=== PATIENT | male | born 1975 | race Caucasian/White ===

== ENCOUNTER 2017-11-06 16:39 | Emergency (ER) | payer SELFPAY ==
[2017-11-06 16:44] VITALS: BP 123/74; PULSE 91; RESP 16; TEMP 36.4; O2SAT 96
--- NOTE | 2017-11-06 16:52 | ED.GENADUL ---
Disposition Clinical Impression: Shingles Disposition: HOME Condition: Good Instructions: Shingles (ED) Additional Instructions: May use ibuprofen, 800 mg, with food every 8 hours. For pain as well as Tylenol 650 mg every 6 hours. Take medication as prescribed. Return for fever, chills, worsening or any other concerns. Our care management team will help you obtain primary care in this area . Prescriptions: ValACYclovir [Valtrex] 1,000 mg PO TID 7 Days #21 tab Medical Decision Making - Medical Decision Making 41-year-old male with right thoracic vesicular rash and pain consistent with acute shingles. We will treat with a course of antiviral. He is outside the window for useful use of prednisone. He understands home management, follow-up, return precautions. Will ask transition of care specialist to help him establish primary care in this area History of Present Illness - General Chief complaint: RashLesion Stated complaint: RASH Time Seen by Provider: 11/06/17 16:42 Source: patient, RN notes reviewed Mode of arrival: ambulatory Limitations: no limitations - History of Present Illness Initial comments: 41yom presents w one week R chest pain, dull,aching, constant, associated with strip like rash of R chest. Improved with Ibuprofen. No fever, cough, SOB. - Related Data Ibuprofen [Advil] 400 mg PO Q6H PRN 11/06/17 ValACYclovir [Valtrex] 1,000 mg PO TID 7 Days #21 tab 11/06/17 Allergies Allergy/AdvReac Type Severity Reaction Status Date / Time No Known Allergies Allergy Unverified 11/06/17 16:45 Review of Systems Other: 41-year-old male: Presents with 7-10 days of dull, achy, constant right-sided chest pain that radiates to the front. Associated with a strip-like rash. No fever, cough, chills, shortness of breath. No fall or injury. Improved with Tylenol. No worsening factors. Past Medical History - Past Medical History Denies General Exam - General Limitations: no limitations General appearance: alert, in no apparent distress - Head Head exam: Present: atraumatic, normocephalic - Eye Eye exam: Present: PERRL, EOMI - Neck Neck exam: Present: normal inspection, full ROM - Respiratory Respiratory exam: Present: normal lung sounds bilaterally, other (Right approximately T4-5 dermatome with vesicular erythematous rash.). Absent: respiratory distress - Cardiovascular Cardiovascular Exam: Present: regular rate, normal rhythm - GI/Abdominal GI/Abdominal exam: Present: soft. Absent: distended - Neurological Exam Neurological exam: Present: alert, oriented X3 - Psychiatric Psychiatric exam: Present: normal affect, normal mood - Skin Skin exam: Present: warm, dry, intact Course Vital Signs - 24 hr 11/06/17 16:44 Temperature 36.4 C L Pulse 91 H Respiratory 16 Rate Blood Pressure 123/74 Pulse Oximetry 96
--- NOTE | 2017-11-07 08:59 | CMPROGNOTE_ITS ---
Care Management Progress Note 11/07-Dr. Cancino requested assistance with a PCP f/u in 1-2 weeks for yuni. Elan does not have a PCP, Avril WHIPPLE ([facility]) water pollution scientist. Referral faxed to [facility] this am.
--- NOTE | 2017-11-07 08:59 | PDOC.ERCMPRO ---
Care Management Progress Note 11/07-Dr. Cancino requested assistance with a PCP f/u in 1-2 weeks for yuni. Elan does not have a PCP, Avril WHIPPLE ([facility]) senior applications architect. Referral faxed to [facility] this am.
== END 2017-11-06 17:18 | disposition home or self-care (01) ==
LOC: ER 08-14 13:21
PROVIDERS: Emergency Provider Emergency Medicine; PCP Nurse Practitioner
DX: B02.9 Zoster without complications (principal)
CPT/HCPCS: 99283

== ENCOUNTER 2018-09-14 08:35 | Outpatient (REF) | payer SELFPAY ==
[2018-09-14 13:39] LABS: HCT 42.8 % (40.0-50.0); HGB 14.9 g/dL (13.5-17.5); Mean Corp. HGB Concentration 34.8 g/dL (32.0-36.0); Mean Corpuscular Hemoglobin 34.1 pg (27.0-33.0); Mean Corpuscular Volume 97.9 fL (80-95); Mean Platelet Volume 10.8 fL (8.0-11.0); Platelet Count 354 x1000/uL (130-400); RBC 4.37 m/cumm (4.50-6.00); RBC Distribution Width 13.3 % (11.8-14.1); White Blood Cell Count 10.41 k/cumm (4.4-10.8)
[2018-09-14 13:51] LABS: ALT 38 U/L (12-78); AST 21 U/L (15-37); Albumin 4.2 g/dL (3.4-5.0); Alkaline Phosphatase 85 U/L (46-116); Anion Gap 12.1 mmol/L (3-11); BUN 13 mg/dL (7-18); Bilirubin, Total 0.4 mg/dL (0.2-1.0); CO2 24.9 mmol/L (21.0-32.0); CREATININE 0.97 mg/dL (0.70-1.30); Calculated LDL 116; Chloride 103 mmol/L (98-107); Cholesterol 163 mg/dL (50-200); Glucose 89 mg/dL (70-100); HDL Cholesterol 36 mg/dL (40-60); Potassium 4.4 mmol/L (3.5-5.1); Sodium 140 mmol/L (136-145); Total Protein 7.5 g/dL (6.4-8.2); Triglyceride 56 mg/dL (30-150)
== END 2018-09-14 08:55 ==
LOC: NCHCN 08:35
PROVIDERS: PCP Nurse Practitioner; Visit Provider Nurse Practitioner Family
DX: Z00.00 Encounter for general adult medical examination without abnormal findings (principal); Z13.228 Encounter for screening for other metabolic disorders; Z13.0 Encounter for screening for diseases of the blood and blood-forming organs and certain disorders involving the immune mechanism; Z13.220 Encounter for screening for lipoid disorders
CPT/HCPCS: 80053; 80061; 83721; 85027

== ENCOUNTER 2019-04-12 11:19 | Outpatient (CLI) | payer SELFPAY ==
--- NOTE | 2019-04-12 11:28 | DI.RAD_ITS ---
EXAM: XR CHEST 2V PA LATERAL INDICATION: CHEST PAIN, R07.9. COMPARISON: No exams were available for comparison TECHNIQUE: 2D digital imaging was performed. FINDINGS: The cardiac and mediastinal contours have a normal appearance. The lungs are well inflated and clear . No infiltrate, effusion or pneumothorax is seen. IMPRESSION: Negative chest x-ray.
[2019-04-12 18:55] LABS: HCT 40.9 % (40.0-50.0); HGB 14.3 g/dL (13.5-17.5); Mean Corpuscular Volume 97.1 fL (80-95); Mean Platelet Volume 10.5 fL (8.0-11.0); Platelet Count 393 x1000/uL (130-400); RBC 4.21 m/cumm (4.50-6.00); RBC Distribution Width 13.2 % (11.8-14.1); White Blood Cell Count 7.64 k/cumm (4.4-10.8)
[2019-04-12 19:04] LABS: Anion Gap 13.1 mmol/L (3-11); BUN 15 mg/dL (7-18); CO2 24.9 mmol/L (21.0-32.0); CREATININE 0.82 mg/dL (0.70-1.30); Chloride 103 mmol/L (98-107); Glucose 94 mg/dL (74-106); Potassium 4.2 mmol/L (3.5-5.1); Sodium 141 mmol/L (136-145)
== END 2019-04-12 11:39 ==
PROVIDERS: PCP Nurse Practitioner; Visit Provider Nurse Practitioner Family
DX: R07.9 Chest pain, unspecified (principal)
CPT/HCPCS: 80048; 85027; 71046

== ENCOUNTER 2019-05-30 01:16 | Outpatient (CLI) | payer SELFPAY ==
--- NOTE | 2019-05-30 08:00 | ETT_ITS ---
APPROVED REPORT Exam: Exercise Treadmill Patient Location: Out-Patient Room/Bed: Stress Nurse: Xin Moore RN BMI: 25.82 Baseline Rhythm: Sinus Rhythm Indications: Patient reports an episode of ???throbbing??? midsternal chest pain in March that woke him up at 2 AM from sleep, then lasted until after 9 AM when he was seen at his PCP. Medical History Cardiac Medications: None, Allergies: No known drug allergies Cardiac Risk Factors: Smoking Previous Cardiac Procedures: None Pretest Chest Pain Characteristics: No chest pain Exercise History: Physically active Physical Disabilities: None Lung Sounds: Clear to auscultation Heart Sounds: Regular Stress Test Details Test: Exercise stress testing was performed using a Zach protocol. Rest Stress HR Resting HR Supine: 71 bpm Max Heart Rate (APMHR): 175 bpm Resting HR Standin bpm Target HR (85% APMHR): 148 bpm Max HR Achieved: 176 bpm % of APMHR: 100 Recovery HR: 122 bpm HR response to stress: Normal HR response to stress BP Resting BP Supine: 120/80 mmHg Resting BP Standin/86 mmHg Max BP: 160/60 mmHg BP response to stress: Normal blood pressure response to stress. ECG Resting ECG: Sinus Rhythm Ectopy: none Stress ECG: Sinus Tachycardia ST Change: Normal Arrhythmia: None Recovery ECG: Sinus Rhythm Recovery ST Change: Normal Recovery Arrhythmia: None Clinical Reason for Termination: Fatigue Stress Symptoms: None Exercise duration: 10 min23 sec Highest Stage Reached: Stage 4: 4.2 mph at 16% grade. Exercise capacity: 12.43 METs Functional Capacity: Average Capacity Stress ECG Conclusion 1. The patient exercised for 10 minutes (12 METS). The patient reached 100% of maximum predicted hea rt rate. Exercise was stopped due to fatigue. Rate-pressure product was 27,000. 2. The patient no symptoms of ischemia during exercise. 3. There was no evidence of ischemia on the ECG at this level of stress. 4. The Yost Score (10) estimates an annual cardiovascular mortality of 0% and a five year survival of 96%. Using the Yost Score there is a low probability of any angiographic coronary disease. Protocol Used: Zach Protocol Stress Test Summary STAGE Time (mins) Speed (mph) Grade (%) HR BP SYMPTOMS METS Supine 71 120/80 Standing 88 130/86 1 3 1.7 10 129 140/70 4.6 2 6 2.5 12 148 150/60 7 3 9 3.4 14 167 156/60 10.2 4 12 4.2 16 12.9 5 15 5.0 18 17.2 1 min recovery 140 140/60 3 min recovery 104 160/60 6 min recovery 95 138/80 9 min recovery 12 min recovery
== END 2019-05-30 01:36 ==
PROVIDERS: PCP Nurse Practitioner; Visit Provider Nurse Practitioner Family
DX: R07.89 Other chest pain (principal); F17.200 Nicotine dependence, unspecified, uncomplicated
CPT/HCPCS: 93017